=== PATIENT | female | born 1970 | race Caucasian/White ===

== ENCOUNTER 2016-11-24 19:59 | Emergency (ER) | payer OTHER ==
[~2016-11-24 19:59] MED LIST: ACETAMINOPHEN500 MG PO; ALEVE220 MG PO; ALPRAZOLAM0.5 MG PO; ASPIRIN EC325 MG PO; BENADRYL25 MG PO; GAS-X80 MG PO; IBUPROFEN400 MG PO; IRON325 MG PO; LAMICTAL100 MG PO; LITHIUM CARBON300 MG PO; PHENERGAN EQUIV25 MG PO; PROAIR HFA IN; SEROQUEL400 MG PO
--- NOTE | 2016-11-24 21:44 | ED ORDER SUMMARY ---
..... Patient: CLAY LEHMAN OrderSheet [facility] VisitID: [id number] [address] [place] [address] 46y, F Registration Date/Time: 11/24/2016 ORDER SHEET Weight: 70.3 kg (stated) Allergies: No Known Drug Allergy GENERAL ORDERS: Chest 2V Urgent (20:26 11/24/2016 EKoroleva P.A.-C) (Ack 20:28 AMcQuoid ER Tech1) (20:57 TChapman R.N.) MEDICATION ORDERS: Albuterol Neb Tx 2.5 mg (NOW) (20:25 11/24/2016 EKoroleva P.A.-C) (Ack 20:26 TChapman R.N.) Dilaudid IM 2 mg (HIGH ALERT MEDICATION, NOW) (20:26 11/24/2016 EKoroleva P.A.-C) (Ack 20:27 TChapman R.N.) (20:41 TChapman R.N.) Phenergan IM 25 mg (HIGH ALERT MEDICATION, NOW) (20:26 11/24/2016 EKoroleva P.A.-C) (Ack 20:27 TChapman R.N.) (20:40 TChapman R.N.) Benadryl PO 25 mg (NOW) (20:26 11/24/2016 EKoroleva P.A.-C) (Ack 20:27 TChapman R.N.) (20:40 TChapman R.N.) IV FLUIDS: ORDER SHEET NOTES: [Electronically signed by Avani Crystal R.N. (21:57 11/24/2016)] [Electronically signed by Roula CalderónAShirlene-C (22:01 11/24/2016)] [Electronically locked/signed by Avani Crystal R.N. (21:57 11/24/2016)]
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
--- NOTE | 2016-11-24 21:44 | ED NURSING NOTES ---
Clinical Report - Nurses [facility] [address] [place] [address] 11/24/2016 19:59 Patient: CLAY LEHMAN TRIAGE Triage time 20:12. Chief Complaint: HEADACHE and MIGRAINE HEADACHE. --20:16 Avani Crystal R.N. 20:12 11/24/16. BP: 133/71. HR: 90. RR: 18. O2 saturation: 100%. Temp: 98.4 F. Pain level now: 02/06. --20:16 Avani Crystal R.N. Weight: 70.3 kg stated. Height/Length: 70 inches Per Patient. BMI: 22.2. --20:12 Avani Crystal R.N. Medications ALPRAZolam Oral 2 mg, 2x a day. Ibuprofen Oral 800 mg, 3x a day as needed, last dose 1700. LaMICtal Oral (Tablet 200 mg) 1 tablet, daily . [place] Oral 900 at HS. SEROquel Oral 600mg at HS . Tylenol Oral 1000, 4x a day as needed, last dose 1200. --20:14 Avani Crystal R.N. Caffeine Oral. --20:14 Avani Crystal R.N. Benadryl Oral. --20:15 Avani Crystal R.N. Allergies No Known Drug Allergy. --20:15 Avani Crystal R.N. History Arrived by private vehicle. Historian: patient. Accompanied by friend. This started about 5 days ago. She has had nausea. No weakness, numbness, fever or sinus pain. 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 --20:16 Avani Crystal R.N. SOCIAL HX: Heavy tobacco smoker (cigarette)- less than 1 pack per day. Alcohol use; consumes beer occasionally. History of drug use: marijuana. Recently used drugs today. Not sexually active. No recent travel. Patient is employed. Marital status: . No known contact with a sick individual. NUTRITIONAL RISK ASSESSMENT: The nutritional risk assessment revealed no deficiencies. The nutritional risk assessment revealed no deficiencies. FUNCTIONAL ASSESSMENT: Functional assessment: no impairments noted. Functional assessment: no impairments noted. LEARNING NEEDS ASSESSMENT: The learning needs assessment revealed no barriers. SKIN INTEGRITY ASSESSMENT: Skin integrity risk assessment completed. No skin integrity risk identified. --20:46 Avani Crystal R.N. PROBLEMS: ADHD - Attention Deficit Hyperactivity Disorder. Migraine Headache. Bipolar Disorder. --20:15 Avani Crystal R.N. ADDITIONAL SURGERIES: . Tonsillectomy. Tubal Ligation. Tubal reversal. --20:16 Avani Crystal R.N. PHYSICAL ASSESSMENT GENERAL / NEURO / PSYCH: Alert. Oriented X 4. HEENT: No facial asymmetry noted. Photophobia present. Pupils equal, round and reactive to light. RESPIRATORY: Respirations not labored. Breath sounds within normal limits. CVS: Capillary refill less than 2 seconds. GI / : Abdomen soft and nontender. SKIN: Skin is warm and dry. --20:17 Avani Crystal R.N. NURSING PROGRESS NOTES 20:17 11/24/16. Call light placed in reach. Side rails up x 1. Bed placed in lowest position. Brakes of bed on. Patient ready for evaluation- chart flagged. --20:17 Avani Crystal R.N. 20:35 11/24/2016 Benadryl (DiphenhydrAMINE HCl) PO Capsules 25 mg given. Allergies verified, confirmed 5 rights and sedative warning given to the patient. --20:40 Avani Crystal R.N. 20:35 11/24/2016 Phenergan (Promethazine HCl) IM 25 mg given. Given in the right deltoid. Allergies verified, confirmed 5 rights and sedative warning given to the patient. --20:40 Avani Crystal R.N. 20:41 11/24/2016 Dilaudid (HYDROmorphone HCl PF) IM 2 mg given. Given in the left deltoid. Allergies verified, confirmed 5 rights and sedative warning given to the patient. --20:41 Avani Crystal R.N. 21:11 11/24/16. --21:11 Avani Crystal R.N. 21:10 11/24/16. BP: 136/63. HR: 82. RR: 16. O2 saturation: 98%. Temp: 98.6 F. Pain level now: 10/09. --21:11 Avani Crystal R.N. 21:11 11/24/16. ( patient feeling much better.). --21:11 Avani Crystal R.N. DISPOSITION / DISCHARGE 21:56 11/24/16. Departure time: 21:56. Condition at departure: improved. The goals identified in the patient's plan of care were met. No learning barriers present. Discharge instructions provided and reviewed with the patient. Reviewed medication(s) side effects and precautions information (олег). Patient verbalized understanding. Written instructions provided in Japanese. The patient was discharged home and accompanied by forming mill operator. She left the Emergency Department ambulatory and via private vehicle. Novelty Maker driving. --21:56 Avani Crystal R.N. 21:52 11/24/16. BP: 136/81. HR: 91. RR: 16. O2 saturation: 100%. Temp: 98.6 F. Pain level now: 11/06. --21:56 Avani Crystal R.N. Locked/Released at 11/24/2016 21:57 by Avani Crystal R.N.
--- NOTE | 2016-11-24 21:44 | ED ORDER SUMMARY ---
..... Patient: CLAY LEHMAN OrderSheet [facility] VisitID: [id number] [address] [place] [address] 46y, F Registration Date/Time: 11/24/2016 ORDER SHEET Weight: 70.3 kg (stated) Allergies: No Known Drug Allergy GENERAL ORDERS: Chest 2V Urgent (20:26 11/24/2016 EKoroleva P.A.-C) (Ack 20:28 AMcQuoid ER Tech1) (20:57 TChapman R.N.) MEDICATION ORDERS: Albuterol Neb Tx 2.5 mg (NOW) (20:25 11/24/2016 EKoroleva P.A.-C) (Ack 20:26 TChapman R.N.) Dilaudid IM 2 mg (HIGH ALERT MEDICATION, NOW) (20:26 11/24/2016 EKoroleva P.A.-C) (Ack 20:27 TChapman R.N.) (20:41 TChapman R.N.) Phenergan IM 25 mg (HIGH ALERT MEDICATION, NOW) (20:26 11/24/2016 EKoroleva P.A.-C) (Ack 20:27 TChapman R.N.) (20:40 TChapman R.N.) Benadryl PO 25 mg (NOW) (20:26 11/24/2016 EKoroleva P.A.-C) (Ack 20:27 TChapman R.N.) (20:40 TChapman R.N.) IV FLUIDS: ORDER SHEET NOTES: [Electronically signed by Avani Crystal R.N. (21:57 11/24/2016)] [Electronically signed by Roula CalderónAShirlene-C (22:01 11/24/2016)] [Electronically locked/signed by Avani Crystal R.N. (21:57 11/24/2016)]
--- NOTE | 2016-11-24 21:44 | ED NURSING NOTES ---
Clinical Report - Nurses [facility] [address] [place] [address] 11/24/2016 19:59 Patient: CLAY LEHMAN TRIAGE Triage time 20:12. Chief Complaint: HEADACHE and MIGRAINE HEADACHE. --20:16 Avani Crystal R.N. 20:12 11/24/16. BP: 133/71. HR: 90. RR: 18. O2 saturation: 100%. Temp: 98.4 F. Pain level now: 02/06. --20:16 Avani Crystal R.N. Weight: 70.3 kg stated. Height/Length: 70 inches Per Patient. BMI: 22.2. --20:12 Avani Crystal R.N. Medications ALPRAZolam Oral 2 mg, 2x a day. Ibuprofen Oral 800 mg, 3x a day as needed, last dose 1700. LaMICtal Oral (Tablet 200 mg) 1 tablet, daily . [place] Oral 900 at HS. SEROquel Oral 600mg at HS . Tylenol Oral 1000, 4x a day as needed, last dose 1200. --20:14 Avani Crystal R.N. Caffeine Oral. --20:14 Avani Crystal R.N. Benadryl Oral. --20:15 Avani Crystal R.N. Allergies No Known Drug Allergy. --20:15 Avani Crystal R.N. History Arrived by private vehicle. Historian: patient. Accompanied by friend. This started about 5 days ago. She has had nausea. No weakness, numbness, fever or sinus pain. 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 --20:16 Avani Crystal R.N. SOCIAL HX: Heavy tobacco smoker (cigarette)- less than 1 pack per day. Alcohol use; consumes beer occasionally. History of drug use: marijuana. Recently used drugs today. Not sexually active. No recent travel. Patient is employed. Marital status: . No known contact with a sick individual. NUTRITIONAL RISK ASSESSMENT: The nutritional risk assessment revealed no deficiencies. The nutritional risk assessment revealed no deficiencies. FUNCTIONAL ASSESSMENT: Functional assessment: no impairments noted. Functional assessment: no impairments noted. LEARNING NEEDS ASSESSMENT: The learning needs assessment revealed no barriers. SKIN INTEGRITY ASSESSMENT: Skin integrity risk assessment completed. No skin integrity risk identified. --20:46 Avani Crystal R.N. PROBLEMS: ADHD - Attention Deficit Hyperactivity Disorder. Migraine Headache. Bipolar Disorder. --20:15 Avani Crystal R.N. ADDITIONAL SURGERIES: . Tonsillectomy. Tubal Ligation. Tubal reversal. --20:16 Avani Crystal R.N. PHYSICAL ASSESSMENT GENERAL / NEURO / PSYCH: Alert. Oriented X 4. HEENT: No facial asymmetry noted. Photophobia present. Pupils equal, round and reactive to light. RESPIRATORY: Respirations not labored. Breath sounds within normal limits. CVS: Capillary refill less than 2 seconds. GI / : Abdomen soft and nontender. SKIN: Skin is warm and dry. --20:17 Avani Crystal R.N. NURSING PROGRESS NOTES 20:17 11/24/16. Call light placed in reach. Side rails up x 1. Bed placed in lowest position. Brakes of bed on. Patient ready for evaluation- chart flagged. --20:17 Avani Crystal R.N. 20:35 11/24/2016 Benadryl (DiphenhydrAMINE HCl) PO Capsules 25 mg given. Allergies verified, confirmed 5 rights and sedative warning given to the patient. --20:40 Avani Crystal R.N. 20:35 11/24/2016 Phenergan (Promethazine HCl) IM 25 mg given. Given in the right deltoid. Allergies verified, confirmed 5 rights and sedative warning given to the patient. --20:40 Avani Crystal R.N. 20:41 11/24/2016 Dilaudid (HYDROmorphone HCl PF) IM 2 mg given. Given in the left deltoid. Allergies verified, confirmed 5 rights and sedative warning given to the patient. --20:41 Avani Crystal R.N. 21:11 11/24/16. --21:11 Avani Crystal R.N. 21:10 11/24/16. BP: 136/63. HR: 82. RR: 16. O2 saturation: 98%. Temp: 98.6 F. Pain level now: 10/09. --21:11 Avani Crystal R.N. 21:11 11/24/16. ( patient feeling much better.). --21:11 Avani Crystal R.N. DISPOSITION / DISCHARGE 21:56 11/24/16. Departure time: 21:56. Condition at departure: improved. The goals identified in the patient's plan of care were met. No learning barriers present. Discharge instructions provided and reviewed with the patient. Reviewed medication(s) side effects and precautions information (олег). Patient verbalized understanding. Written instructions provided in Yi. The patient was discharged home and accompanied by apparel rental clerk. She left the Emergency Department ambulatory and via private vehicle. Legal Records Manager driving. --21:56 Avani Crystal R.N. 21:52 11/24/16. BP: 136/81. HR: 91. RR: 16. O2 saturation: 100%. Temp: 98.6 F. Pain level now: 11/06. --21:56 Avani Crystal R.N. Locked/Released at 11/24/2016 21:57 by Avani Crystal R.N.
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
--- NOTE | 2016-11-24 22:02 | ED MAR SUMMARY ---
..... Medication Administration Record [facility] [address] [place] [address] Patient: CLAY LEHMAN Visit ID: [id number] 46y, F Weight: 70.3 kg Height/Length: 70 in BMI: 22.2 ALLERGIES: No Known Drug Allergy Given 20:35 11/24/2016 Avani Crystal RShirleneNShirlene Medication Administered: PHENERGAN [IM] (PROMETHAZINE HCL), Dose: 25 mg IM. Medication Ordered: Phenergan IM 25 mg (HIGH ALERT MEDICATION, NOW). Given 20:35 11/24/2016 Avani Crystal RShirleneNShirlene Medication Administered: BENADRYL [PO] (DIPHENHYDRAMINE HCL), Dose: 25 mg Capsules PO. Medication Ordered: Benadryl PO 25 mg (NOW). Given 20:11/24/2016 Avani Crystal, R.NShirlene Medication Administered: DILAUDID [IM] (HYDROMORPHONE HCL PF), Dose: 2 mg IM. Medication Ordered: Dilaudid IM 2 mg (HIGH ALERT MEDICATION, NOW).
--- NOTE | 2016-11-24 22:02 | ED MED RECONCILIATION SUMMARY ---
Patient: CLAY LEHMAN Medication Reconciliation Report [facility] VisitID: [id number] [address] [place] [address] 46y, F Registration Date/Time: 11/24/2016 Weight: 70.3 kg Height/Length: 70 in. BMI: 22.2 ALLERGIES: No Known Drug Allergy The patient's Home Medications are listed below: THE FOLLOWING MEDICATIONS NEED TO BE RECONCILED: ALPRAZolam Oral 2 mg, 2x a day Benadryl Oral Caffeine Oral Ibuprofen Oral 800 mg, 3x a day, last dose: 1700 LaMICtal Oral (200 mg) 1 tablet, daily [place] Oral 900 at HS SEROquel Oral 600mg at HS Tylenol Oral 1000, 4x a day, last dose: 1200 The source(s) of the original Home Medication information: Not obtained. The following Medications were given to the patient in the Emergency Department: Benadryl [PO] PO 25 mg, administered: 11/24/2016 8:35:00 PM Phenergan [IM] IM 25 mg, administered: 11/24/2016 8:35:00 PM Dilaudid [IM] IM 2 mg, administered: 11/24/2016 8:41:00 PM The following Medications were prescribed to the patient: Zofran (orally disintegrating tablets) 4 mg: take 1 orally every 6 hours for 3 days as needed for nausea. Dispense ten (10). No refill. Substitution is permissible. -- Roula Calderón P.A.-C
--- NOTE | 2016-11-24 22:02 | ED MAR SUMMARY ---
..... Medication Administration Record [facility] [address] [place] [address] Patient: CLAY LEHMAN Visit ID: [id number] 46y, F Weight: 70.3 kg Height/Length: 70 in BMI: 22.2 ALLERGIES: No Known Drug Allergy Given 20:35 11/24/2016 Avani Crystal RShirleneNShirlene Medication Administered: PHENERGAN [IM] (PROMETHAZINE HCL), Dose: 25 mg IM. Medication Ordered: Phenergan IM 25 mg (HIGH ALERT MEDICATION, NOW). Given 20:35 11/24/2016 Avani Crystal RShirleneNShirlene Medication Administered: BENADRYL [PO] (DIPHENHYDRAMINE HCL), Dose: 25 mg Capsules PO. Medication Ordered: Benadryl PO 25 mg (NOW). Given 20:11/24/2016 Avani Crystal, R.NShirlene Medication Administered: DILAUDID [IM] (HYDROMORPHONE HCL PF), Dose: 2 mg IM. Medication Ordered: Dilaudid IM 2 mg (HIGH ALERT MEDICATION, NOW).
--- NOTE | 2016-11-24 22:02 | ED MED RECONCILIATION SUMMARY ---
Patient: CLAY LEHMAN Medication Reconciliation Report [facility] VisitID: [id number] [address] [place] [address] 46y, F Registration Date/Time: 11/24/2016 Weight: 70.3 kg Height/Length: 70 in. BMI: 22.2 ALLERGIES: No Known Drug Allergy The patient's Home Medications are listed below: THE FOLLOWING MEDICATIONS NEED TO BE RECONCILED: ALPRAZolam Oral 2 mg, 2x a day Benadryl Oral Caffeine Oral Ibuprofen Oral 800 mg, 3x a day, last dose: 1700 LaMICtal Oral (200 mg) 1 tablet, daily [place] Oral 900 at HS SEROquel Oral 600mg at HS Tylenol Oral 1000, 4x a day, last dose: 1200 The source(s) of the original Home Medication information: Not obtained. The following Medications were given to the patient in the Emergency Department: Benadryl [PO] PO 25 mg, administered: 11/24/2016 8:35:00 PM Phenergan [IM] IM 25 mg, administered: 11/24/2016 8:35:00 PM Dilaudid [IM] IM 2 mg, administered: 11/24/2016 8:41:00 PM The following Medications were prescribed to the patient: Zofran (orally disintegrating tablets) 4 mg: take 1 orally every 6 hours for 3 days as needed for nausea. Dispense ten (10). No refill. Substitution is permissible. -- Roula Calderón P.A.-C
--- NOTE | 2016-11-24 22:02 | ED DISCHARGE INSTRUCTIONS ---
Patient: CLAY LEHMAN General Instructions [facility] VisitID: [id number] [place] [address] 46y, F Registration Date/Time: 11/24/2016 Chronic recurrent migraine headache- poorly controlled. INSTRUCTIONS Prescription Medications: Zofran (orally disintegrating tablets) 4 mg: take 1 orally every 6 hours for 3 days as needed for nausea. Dispense ten (10). No refill. Substitution is permissible. Follow-up: Follow up with your doctor in two days. ADDITIONAL INFORMATION Migraine Headache Migraine headaches are related to changes in blood flow to the brain. This causes throbbing or constant pain on one or both sides of the head. The pain may last from a few hours to several days. There is usually nausea, vomiting, sensitivity to light and sound, and blurred vision. A migraine attack may be triggered by emotional stress, hormone changes during the menstrual cycle, oral contraceptives, alcohol use, certain foods containing tyramine, eye strain, weather changes, missing meals, or too little or too much sleep. Home Care For This Headache: 1) If you were given pain medicine for this headache, do not drive yourself home . Arrange for a ride, instead. When you get home, try to sleep. You should feel much better when you wake up. 2) Migraine headaches may improve with an ice pack on the forehead or at the base of the skull. Heat to the back of your neck may relieve any neck spasm. 3) Drink only clear liquids or eat a very light diet to avoid nausea/vomiting until symptoms improve. Preventing Future Headaches: 1) Pay attention to those factors that seem to trigger your headache. Try to avoid them when you can. If you have frequent headaches, it is useful to keep a diary of what you were doing, feeling or eating in the hours before each attack. Show this to your doctor to help find the cause of your headaches. a) If you feel that stress is a factor in your headaches, look at the sources of stress in your life. Find ways to release the build-up of those stresses by using regular exercise, relaxation methods (yoga, meditation), bio-feedback or simply taking time-out for yourself. For more information about this, consult your doctor or go to a local bookstore and review books and tapes on this subject. b) Tyramine is a substance present in the following foods : chocolate, yogurt, all cheeses except cottage cheese and cream cheese. smoked or pickled fish and meat (including wharton, caviar, bologna, pepperoni, salami), liver, avocados, bananas, figs, raisins, and red wine. Be aware that these foods may trigger a migraine in some persons. Try taking these foods out of your diet for 1-2 months to see if this reduces headache frequency. Treating Future Attacks: 1) At the first sign of a headache, take time out if possible. Find a quiet, dark, comfortable place to sit or lie down. Let yourself relax or sleep. 2) An ice pack on the forehead or area of greatest pain may help. If you are having muscle spasm and tightness of the neck, a heating pad and massage to this area may be helpful. 3) If you have been prescribed a medicine to stop a migraine headache, use this at the very first warning sign of the headache (aura or initial pain) for best results. Follow Up with your doctor if the headache is not better within the next 24 hours. If you have frequent headaches you should discuss a treatment plan with your primary care doctor. Ask if you can have medicine to take at home the next time you get a bad headache. Poorly controlled chronic headaches may require a referral to a neurologist (headache specialist). Get Prompt Medical Attention if any of the following occur: Your head pain gets worse, or does not improve within 24 hours Repeated vomiting (cant keep liquids down) Sinus or ear or throat pain (not already reported) Fever of 100.4 F (38 C) or higher, or as directed by your healthcare provider Stiff neck Extreme drowsiness, confusion or fainting Dizziness, vertigo (dizziness with spinning sensation) Weakness of an arm or leg or one side of the face Difficulty with speech or vision Ondansetron Hydrochloride Oral tablet What is this medicine? ONDANSETRON (on YUMIKO se hair) is used to treat nausea and vomiting caused by chemotherapy. It is also used to prevent or treat nausea and vomiting after surgery. How should I use this medicine? Take this medicine by mouth with a glass of water. Follow the directions on your prescription label. Take your doses at regular intervals. Do not take your medicine more often than directed. Talk to your supervisor cold rolling regarding the use of this medicine in children. Special care may be needed. What side effects may I notice from receiving this medicine? Side effects that you should report to your doctor or health resident care supervisor as soon as possible: allergic reactions like skin rash, itching or hives, swelling of the face, lips or tongue breathing problems dizziness fast or irregular heartbeat feeling faint or lightheaded, falls fever and chills swelling of the hands or feet tightness in the chest Side effects that usually do not require medical attention (report to your doctor or health resident care supervisor if they continue or are bothersome): constipation or diarrhea headache What may interact with this medicine? Do not take this medicine with any of the following medications: -apomorphine -cisapride -dofetilide -dronedarone -pimozide -thioridazine -ziprasidone This medicine may also interact with the following medications: -carbamazepine -phenytoin -rifampicin -tramadol -other medicines that prolong the QT interval (cause an abnormal heart rhythm) What if I miss a dose? If you miss a dose, take it as soon as you can. If it is almost time for your next dose, take only that dose. Do not take double or extra doses. Where should I keep my medicine? Keep out of the reach of children. Store between 2 and 30 degrees C (36 and 86 degrees F). Throw away any unused medicine after the expiration date. What should I tell my health care provider before I take this medicine? They need to know if you have any of these conditions: heart disease history of irregular heartbeat liver disease low levels of magnesium or potassium in the blood an unusual or allergic reaction to ondansetron, granisetron, other medicines, foods, dyes, or preservatives or trying to get breast-feeding What should I watch for while using this medicine? Check with your doctor or health resident care supervisor right away if you have any sign of an allergic reaction. You have been given the following additional information: Headache, Migraine (Classical) Ondansetron Hydrochloride Oral tablet (Electronically signed by Roula Calderón P.A.-C 11/24/2016 22:01)
--- NOTE | 2016-11-24 23:14 | DIAGNOSTIC IMAGING REPORT ---
PROCEDURE: XR CHEST 2 VIEW INDICATION: FEVER TECHNIQUE: PA and lateral views. COMPARISON: None. FINDINGS: Lungs are clear. Heart and mediastinum are normal. Thorax is normal. IMPRESSION: 1. Negative chest.
== END 2016-11-24 21:55 | disposition home or self-care (01) ==
LOC: ED SRH 19:59
DX: G43.719 Chronic migraine without aura, intractable, without status migrainosus (principal); J45.909 Unspecified asthma, uncomplicated; F17.210 Nicotine dependence, cigarettes, uncomplicated; Z79.899 Other long term (current) drug therapy